=== PATIENT | male | born 1960 | race Two or more races ===

== ENCOUNTER 2025-01-18 10:20 | Emergency (ER) | payer OTHER ==
[~2025-01-18] VITALS: Ht 177.8 cm; Wt 93.0 kg
[2025-01-18] MEDS ORDERED: ATORVASTATIN CA20 MG (11:40)
[2025-01-18] MEDS ORDERED: ORPHENADRINE CITRATE 30 MG/ML AMPUL IM ONE (14:15)
[2025-01-18] MEDS ORDERED: TRAMADOL HCL E100 M1 PO (19:58)
== END 2025-01-18 20:30 | disposition home or self-care (01) ==
LOC: ER 10:20
DX: M25.661 Stiffness of right knee, not elsewhere classified (principal); I10 Essential (primary) hypertension; Z88.6 Allergy status to analgesic agent; Z91.013 Allergy to seafood
CPT/HCPCS: 73560; 96372; 99283; J2360